=== PATIENT | male | born 1985 | race Caucasian/White ===

== ENCOUNTER 2025-05-31 23:28 | Emergency (ER) | payer OTHER, SELFPAY | END 2025-06-01 00:09 | LOC: EEVIPCON 23:28 → ERS 23:28 | DX: S60.812A Abrasion of left wrist, initial encounter (principal); S60.811A Abrasion of right wrist, initial encounter; Z02.89 Encounter for other administrative examinations; V49.40XA Driver injured in collision with unspecified motor vehicles in traffic accident, initial encounter | CPT/HCPCS: 99282 ==